=== PATIENT | male | born 1975 | race Two or more races ===

== ENCOUNTER 2023-09-14 08:34 | Emergency (ER) | payer OTHER ==
[~2023-09-14] VITALS: Ht 170.2 cm; Wt 103.4 kg
[2023-09-14] MEDS ORDERED: AVAPRO300 MG (08:50)
[2023-09-14] MEDS ORDERED: CARVEDILOL25 M1 PO (08:51)
[2023-09-14] MEDS ORDERED: NIFEDIPINE20 MG (08:51)
[2023-09-14] MEDS ORDERED: HYDROCHLOROTHIA25 MG PO (08:51)
[2023-09-14] MEDS ORDERED: DEXAMETHASONE SODIUM PHOSPHATE 4 MG/ML VIAL IM STA (08:59)
[2023-09-14] MEDS ORDERED: MEPERIDINE HCL/PF 25 MG/ML VIAL IM STA (08:59)
[2023-09-14 09:34] LABS: HEMATOCRIT 41.9 % (39.0-48.0); HEMOGLOBIN 14.7 g/dL (13-16.00); MEAN CELL VOLUME 90.2 fL (80.0-100.00); MEAN CORPUSCULAR HEMOGLOBIN 31.7 pg (27.00-32.0); MEAN CORPUSCULAR HGB CONC 35.1 g/dl (32.0-36.0); PLATELET COUNT 303 K/uL (150-450); RED BLOOD COUNT 4.64 M/uL (4.00-6.00); RED CELL DISTRIBUTION WIDTH 13.1 % (11.5-14.5)
[2023-09-14 09:54] LABS: URINE APPEARANCE Clear; URINE BILIRRUBIN Negative (NEGATIVE); URINE BLOOD Negative; URINE COLOR Yellow; URINE GLUCOSE Negative (NEGATIVE); URINE LEUKOCYTE Negative; URINE NITRATE Negative; URINE PROTEIN Negative (NEGATIVE); URINE UROBILINOGEN 0.2 E.U./dl
[2023-09-14 09:57] LABS: URINE EPITHELIAL CELLS 1.8 uL (0.0-38.8); URINE RBC 7.7 uL (0.0-20.8); URINE WBC 2.3 uL (0.0-23.2)
[2023-09-14 09:59] LABS: URINE BACTERIA 0 uL (0.0-1933)
[2023-09-14 10:00] LABS: CALCIUM 9.3 mg/dL (8.5-10.1); CREATININE SERUM 1.76 mg/dL (0.70-1.30); GFR 41.71; POTASSIUM 4.38 mEq/L (3.5-5.1)
[2023-09-14] MEDS ORDERED: ACETAMINOPHEN650 M2 PO (11:22)
[2023-09-14] MEDS ORDERED: NORFLEX100MG PO (11:22)
[2023-09-14] MEDS ORDERED: MEDROLPACK PO (11:22)
== END 2023-09-14 11:34 | disposition home or self-care (01) ==
LOC: ER 08:35
PROVIDERS: General Practice
DX: M54.9 Dorsalgia, unspecified (principal); Z88.6 Allergy status to analgesic agent
CPT/HCPCS: 36415; 74176; 96372; 99284; J1100; J3490